=== PATIENT | female | born 1980 | race Caucasian/White ===

== ENCOUNTER 2017-08-27 09:24 | Emergency (ER) | payer BC ==
[2017-08-27] MEDS ORDERED: Cyclobenzaprine TAB* 10 MG PO ONE (10:25)
[2017-08-27] MEDS ORDERED: Ketorolac INJ* 60 MG/2 ML VIAL IM ONE (10:25)
--- NOTE | 2017-08-27 10:39 | ED ---
Back Pain - HPI Summary HPI Summary: Patient is an otherwise healthy 37-year-old female presenting to the ED with right-sided flank pain after falling on a tailgate 2 days ago. She states she handles pain very well yet she is unable to withstand this type of pain. She is concerned for a kidney injury. Denies any hematuria or UTI symptoms. Denies any abdominal pain. She denies any cough, chest pain, shortness of breath. Denies any fevers, sweats, chills. She has been otherwise healthy and states she is otherwise at her baseline other than her 9 out of 10 right flank pain. Denies any pain directly over the spine is has never had spinal or other back issues in the past. She has been using ice for relief. She has been using Tylenol without relief. - History of Current Complaint Chief Complaint: EDBackInjuryPain Stated Complaint: FALL/RT FLANK PAIN Time Seen by Provider: 08/27/17 09:52 Hx Obtained From: Patient Hx Last Menstrual Period: last week Onset/Duration: Sudden Onset Onset/Duration: Started Hours Ago Timing: Constant Back Pain Location: Is Discrete @ - Right flank Severity Initially: Severe Severity Currently: Moderate Pain Intensity: 9 Pain Scale Used: 0-10 Numeric Character: Aching Aggravating Symptom(s): Movement, Lifting, Bending, Walking Alleviating Symptom(s): Rest, Position Associated Signs And Symptoms: Positive: Bruising - Risk Factors AAA Risk Factors: Negative TAD Risk Factors: Negative Cauda Equina Risk Factors: Negative Epidural Abscess Risk Factors: Negative - Allergies/Home Medications Allergies/Adverse Reactions: Allergies Allergy/AdvReac Type Severity Reaction Status Date / Time Penicillins Allergy Unknown Verified 08/27/17 10:07 Reaction Details PMH/Surg Hx/FS Hx/Imm Hx Previously Healthy: Yes - Surgical History Surgery Procedure, Year, and Place: - Immunization History Hx Pertussis Vaccination: No Immunizations Up to Date: Unable to Obtain/Confirm Infectious Disease History: No Infectious Disease History: Denies: Traveled Outside the [place] in Last 30 Days - Family History Known Family History: Positive: Diabetes, Other - cancer - Social History Occupation: Employed Full-time Lives: With Family Alcohol Use: Weekly Hx Substance Use: No Substance Use Type: Reports: None Hx Tobacco Use: Yes Smoking Status (MU): Light Every Day Tobacco Smoker Type: Cigarettes Amount Used/How Often: 8-10 cig a day Review of Systems Constitutional: Negative Negative: Fever, Chills, Fatigue, Skin Diaphoresis Eyes: Negative Cardiovascular: Negative Respiratory: Negative Negative: Shortness Of Breath, Cough Positive: Other - back pain. Negative: Abdominal Pain, Vomiting, Diarrhea, Nausea Genitourinary: Negative Positive: no symptoms reported, see HPI Positive: Arthralgia - right-sided flank pain, Myalgia Skin: Negative Neurological: Negative All Other Systems Reviewed And Are Negative: Yes Physical Exam Triage Information Reviewed: Yes Vital Signs On Initial Exam: Initial Vitals Temp Pulse Resp BP Pulse Ox 97.9 F 77 15 152/105 98 08/27/17 09:41 08/27/17 09:41 08/27/17 09:41 08/27/17 09:41 08/27/17 09:41 Vital Signs Reviewed: Yes Appearance: Positive: Well-Appearing, Well-Nourished Skin: Positive: Warm, Skin Color Reflects Adequate Perfusion, Other - Ecchymosis to the right flank Head/Face: Positive: Normal Head/Face Inspection Eyes: Positive: EOMI, CLIFF Neck: Positive: Supple, No Lymphadenopathy Respiratory/Lung Sounds: Positive: Clear to Auscultation, Breath Sounds Present Cardiovascular: Positive: RRR, Pulses are Symmetrical in both Upper and Lower Extremities Abdomen Description: Positive: Nontender, Soft, CVA Tenderness (R). Negative: CVA Tenderness (L), McBurney's Point Tenderness Neurological: Positive: Normal, Sensory/Motor Intact, Alert, Oriented to Person Place, Time, Speech Normal Psychiatric: Positive: Normal, Affect/Mood Appropriate AVPU Assessment: Alert Diagnostics - Vital Signs Vital Signs Temp Pulse Resp BP Pulse Ox 08/27/17 09:41 97.9 F 77 15 152/105 98 - Laboratory Lab Statement: Any lab studies that have been ordered have been reviewed, and results considered in the medical decision making process. Back Pain Course/Dx - Course Course Of Treatment: During the course of treatment, the patient is evaluated for right flank pain. She is exquisitely tender over the right flank on deep palpation, there is ecchymosis to the side. She has no pain to the lumbar spine and is ambulatory without worsening discomfort. Denies any weakness, numbness, tingling. She denies any fevers. Denies any chest pain or shortness of breath. CT abdomen and pelvis obtained to assess for further injury of the kidney per patient request. She is given Toradol and Flexeril for relief. UA obtained. She is given Toradol, Flexeril in the ED with good effect. Toradol and Flexeril prescribed for at home. CTA obtained which shows: IMPRESSION: NO HYDRONEPHROSIS OR NEPHROLITHIASIS. NO ACUTE NONCONTRAST CT PATHOLOGY OF THE VISUALIZED. ABDOMEN OR PELVIS. She is sent home with strict return precautions if she is urinating blood or having any worsening abdominal pain. She understands these precautions and is okay for discharge at this time. - Diagnoses Differential Diagnosis/HQI/PQRI: Positive: Strain, Sprain Provider Diagnoses: Contusion Images - Images Full Body (No Head): 1 - Ecchymosis Discharge - Sign-Out/Discharge Documenting (check all that apply): Discharge/Admit/Transfer - Discharge Plan Condition: Stable Disposition: HOME Prescriptions: Cyclobenzaprine TAB* [Flexeril TAB*] 10 mg PO BID PRN #10 tab PRN Reason: Spasms Ketorolac TAB * [Toradol TAB *] 10 mg PO Q6H #16 tab Patient Education Materials: Contusion in Adults (ED) Referrals: Zechariah Lopez II, MD [Primary Care Provider] - Additional Instructions: Toradol up to 4 times daily for pain Flexeril as needed for any muscle aches or spasms Flexeril may be taken up to twice daily morning and night Use heat pads to the area as much as possible Do not take Advil, ibuprofen, naproxen or other NSAIDs while taking Toradol If he develop any worsening or changing symptoms, return to the ED immediately - Billing Disposition and Condition Condition: STABLE Disposition: HOME
--- NOTE | 2017-08-27 10:46 | RAD ---
CLINICAL HISTORY: Right-sided kidney pain after fall COMPARISON: None TECHNIQUE: Multiple contiguous axial CT scans were obtained of the abdomen and pelvis, without intravenous contrast enhancement. Coronal and sagittal multiplanar reformations are submitted for review. Oral contrast was not administered. FINDINGS: The study is limited by the lack of intravenous contrast. This limits evaluation of the solid organs and vasculature. LUNG BASES: The lung bases are clear. LIVER: The liver is normal in shape, size, contour, and attenuation. BILE DUCTS: There is no intrahepatic or extrahepatic biliary dilatation. GALLBLADDER: The gallbladder is normal, without pericholecystic inflammatory change. PANCREAS: The pancreas is normal, without mass or ductal dilatation. SPLEEN: Normal in size and appearance. UPPER GI TRACT: Evaluation of the gastrointestinal tract is limited by incomplete gastric distention. The upper GI tract is unremarkable. SMALL BOWEL AND MESENTERY: The small bowel is normal in contour, course, and caliber. There is no obstruction or dilatation. COLON: The colon is normal in contour, course, caliber. There is no pericolonic inflammatory change. There is a tubular, vermiform, hollow viscus that is blind ending, and originates from the cecum, consistent with a normal appendix. There is no periappendiceal inflammatory change. This is best seen on images 34 through 37. ADRENALS: Normal bilaterally. KIDNEYS: The kidneys are normal in shape, size, contour, and axis. There is no hydronephrosis or nephrolithiasis. There are no perinephric fluid collections. BLADDER: The bladder is smooth in contour. PELVIC ORGANS: The uterus and adnexa are grossly normal for technique. AORTA: The aorta is normal. IVC: Unremarkable LYMPH NODES: There is no lymphadenopathy by size criteria. ABDOMINAL WALL: There is a small fat-containing umbilical hernia. BONES AND SOFT TISSUES: Degenerative changes are noted at L4-L5 and L5-S1 OTHER: None IMPRESSION: NO HYDRONEPHROSIS OR NEPHROLITHIASIS. NO ACUTE NONCONTRAST CT PATHOLOGY OF THE VISUALIZED ABDOMEN OR PELVIS.
[2017-08-27 11:14] VITALS: BP 148/98
== END 2017-08-27 11:14 | disposition home or self-care (01) ==
LOC: ED 09:24
DX: S30.1XXA Contusion of abdominal wall, initial encounter (principal); W19.XXXA Unspecified fall, initial encounter; Y92.9 Unspecified place or not applicable; R10.84 Generalized abdominal pain; F17.210 Nicotine dependence, cigarettes, uncomplicated
CPT/HCPCS: 74176; 96372; 99282; A9270-GY; J1885

== ENCOUNTER 2023-12-23 10:09 | Inpatient (IN) ==
[2023-12-23] MEDS ORDERED: Naloxone 4 mg VIAL 0.4 MG/ML 10 ml VIAL (4 mg) ONE (10:15)
[2023-12-23] MEDS: Naloxone 4 mg VIAL 0.4 MG/ML 10 ml VIAL (4 mg) IV ONE (10:19)
[2023-12-23 10:40] LABS: ABS Basophils 0.1 10^3/uL (0.0-0.1); ABS Eosinophils 0.5 10^3/uL (0.0-0.5); ABS Lymphocytes 1.8 10^3/uL (1.0-4.8); ABS Monocytes 0.3 10^3/uL (0.0-0.9); ABS Neutrophils 2.6 10^3/uL (1.5-7.6); ABS Nucleated RBC 0.01 10^3/ul; Eosinophil % 9.9 %; Hematocrit 40.7 % (35-45); Hemoglobin 13.6 g/dL (11.5-14.3); Lymphocyte % 33.4 %; Mean Corpuscular Hemoglobin 29.4 pg (27-33); Mean Corpuscular Hgb Conc 33.5 g/dL (31-36); Mean Corpuscular Volume 87.9 fL (80-97); Mean Platelet Volume 7.7 fL (7.5-11.2); Nucleated Red Blood Cells % 0.1 %/100WBC (0.0-0.8); Platelet Count 275 10^3/uL (150-450); Red Blood Count 4.63 10^6/uL (3.63-4.92); Red Cell Distribution Width 15.9 % (12-17); White Blood Count 5.3 10^3/uL (3.8-11.8)
[2023-12-23 10:58] LABS: ALT 19 U/L (7-52); AST 23 U/L (13-39); Acetaminophen < 15 mcg/mL; Albumin 4.6 g/dL (3.2-5.2); Albumin/Globulin Ratio 1.7 (1-3); Alcohol, S 144 mg/dL (<13); Alkaline Phosphatase 72 U/L (35-149); Anion Gap 13 mmol/L (2-16); Blood Urea Nitrogen 6 mg/dL (6-24); CO2 Carbon Dioxide 25 mmol/L (22-32); Calcium 8.6 mg/dL (8.6-10.3); Chloride 104 mmol/L (101-111); Creatinine, Serum 0.66 mg/dL (0.51-0.95); Globulin 2.7 g/dL (2-4); Glucose 88 mg/dL (70-100); Potassium 3.9 mmol/L (3.5-5.0); Salicylate < 2.50 mg/dL (<30); Sodium 142 mmol/L (135-145); Total Bilirubin 0.4 mg/dL (0.2-1.0); Total Protein 7.3 g/dL (6.4-8.9); eGFR CKD-EPI 110.9 (>60)
[2023-12-23 11:05] LABS: HCG Pregnancy < 0.60 mIU/mL
[2023-12-23 13:36] LABS: Venous Bicarbonate HCO3 25.2 mmol/L (24-28)
[2023-12-23] MEDS: Naloxone 0.4 mg VIAL 0.4 mg/ml 1 ml VIAL IV PUSH ONE ×2 (13:57)
[2023-12-23 14:25] LABS: Urine Benzodiazepine Screen None Detected (None Detect); Urine Cannabinoids Screen Presumptive Positive (None Detect); Urine Opiates Screen None Detected (None Detect)
[2023-12-23] MEDS ORDERED: Al Hydrox/Mg Hydrox/Simet LIQ 30 ML UDC PO PRN (22:35)
[2023-12-24 08:17] LABS: HDL Cholesterol 80.9 mg/dL
[2023-12-24] MEDS: Vitamin THERAPEUTIC TAB PO SCH (11:44)
[2023-12-24] MEDS: Nicotine PATCH 14 MG/24 HR PATCH TRANSDERM SCH (11:44)
[2023-12-25] MEDS: Nicotine GUM 2MG FRUIT FLAVOR PO PRN (13:26)
[2023-12-27 10:34] VITALS: BP 135/93
== END 2023-12-27 12:05 | disposition home or self-care (01) | DRG 751 ==
LOC: ED 10:09 → BSU 17:13
PROVIDERS: ADMIT Psychiatry & Neurology Psychiatry; ATTEND Psychiatry & Neurology Psychiatry

== ENCOUNTER 2024-04-10 01:02 | Inpatient (IN) ==
[2024-04-10 01:58] LABS: ABS Basophils 0.1 10^3/uL (0.0-0.1); ABS Eosinophils 0.3 10^3/uL (0.0-0.5); ABS Lymphocytes 2.2 10^3/uL (1.0-4.8); ABS Monocytes 0.5 10^3/uL (0.0-0.9); ABS Neutrophils 5.8 10^3/uL (1.5-7.6); ABS Nucleated RBC 0.01 10^3/ul; Hematocrit 30.7 % (35-45); Hemoglobin 10.1 g/dL (11.5-14.3); Lymphocyte % 24.3 %; Mean Corpuscular Hemoglobin 26.3 pg (27-33); Mean Corpuscular Hgb Conc 32.9 g/dL (31-36); Mean Corpuscular Volume 79.9 fL (80-97); Mean Platelet Volume 7.5 fL (7.5-11.2); Nucleated Red Blood Cells % 0.1 %/100WBC (0.0-0.8); Platelet Count 330 10^3/uL (150-450); Red Blood Count 3.84 10^6/uL (3.63-4.92); Red Cell Distribution Width 16.2 % (12-17); White Blood Count 8.9 10^3/uL (3.8-11.8)
[2024-04-10 02:18] LABS: Urine Appearance Clear; Urine Bilirubin Negative (Negative); Urine Blood 3+ (Negative); Urine Color Light-Yellow; Urine Glucose Negative (Negative); Urine Ketones Negative (Negative); Urine Nitrite Negative (Negative); Urine Protein Negative (Negative); Urine Urobilinogen Negative (Negative); Urine pH 6.5 (5.0-8.0)
[2024-04-10 02:32] LABS: ALT 16 U/L (7-52); AST 20 U/L (13-39); Acetaminophen < 15 mcg/mL; Alcohol, S < 13 mg/dL (<13); Alkaline Phosphatase 61 U/L (35-149); Anion Gap 7 mmol/L (2-16); Blood Urea Nitrogen 13 mg/dL (6-24); CO2 Carbon Dioxide 24 mmol/L (22-32); Calcium 8.7 mg/dL (8.6-10.3); Chloride 103 mmol/L (101-111); Creatinine, Serum 0.71 mg/dL (0.51-0.95); Glucose 111 mg/dL (70-100); Salicylate < 2.50 mg/dL (<30); Sodium 134 mmol/L (135-145); Total Bilirubin 0.5 mg/dL (0.2-1.0); eGFR CKD-EPI 106.8 (>60)
[2024-04-10 02:38] LABS: HCG Pregnancy < 0.60 mIU/mL
[2024-04-10 03:08] LABS: Urine Benzodiazepine Screen None Detected (None Detect); Urine Cannabinoids Screen Presumptive Positive (None Detect); Urine Opiates Screen None Detected (None Detect)
[2024-04-10 05:50] LABS: Urine Bacteria Absent /HPF (Absent); Urine Red Blood Cell 3+(>10/hpf) /HPF (0-Trace); Urine Squamous Epithelial Cell Present /HPF (Absent); Urine White Blood Cell Trace(0-5/hpf) /HPF (0-Trace)
[2024-04-10 05:54] LABS: Urine Benzodiazepine Screen None Detected (None Detect); Urine Buprenorphine Screen None Detected (None Detect); Urine Cannabinoids Screen Presumptive Positive (None Detect); Urine Fentanyl Screen None Detected (None Detect); Urine Hydrocodone Screen None Detected (None Detect); Urine Opiates Screen None Detected (None Detect)
[2024-04-10] MEDS: Naloxone 0.4 mg VIAL 0.4 mg/ml 1 ml VIAL IV PUSH ONE ×2 (07:39→13:55)
[2024-04-10] MEDS: Lactated Ringers 1000 ml BAG 500 ML IV ONE (14:04)
[2024-04-10] MEDS: Enoxaparin 40 MG/0.4 ML SYR SUBCUT SCH (14:14)
[2024-04-10 14:50] LABS: Lipase 10 U/L (11.0-82.0)
[2024-04-10] MEDS: Haloperidol 5 mg/ml SDV IV/IM 5 MG/ML AMP IV SLOW PU PRN (22:27)
[2024-04-11 05:05] LABS: ABS Basophils 0.1 10^3/uL (0.0-0.1); ABS Eosinophils 0.2 10^3/uL (0.0-0.5); ABS Lymphocytes 1.4 10^3/uL (1.0-4.8); ABS Monocytes 0.7 10^3/uL (0.0-0.9); ABS Neutrophils 7.3 10^3/uL (1.5-7.6); Eosinophil % 2.2 %; Hematocrit 30.3 % (35-45); Hemoglobin 10.1 g/dL (11.5-14.3); Lymphocyte % 14.5 %; Mean Corpuscular Hemoglobin 26.5 pg (27-33); Mean Corpuscular Hgb Conc 33.3 g/dL (31-36); Mean Corpuscular Volume 79.5 fL (80-97); Mean Platelet Volume 8.1 fL (7.5-11.2); Platelet Count 301 10^3/uL (150-450); Red Blood Count 3.81 10^6/uL (3.63-4.92); Red Cell Distribution Width 16.8 % (12-17); White Blood Count 9.7 10^3/uL (3.8-11.8)
[2024-04-11 05:36] LABS: Calcium 8.8 mg/dL (8.6-10.3); Creatinine, Serum 0.71 mg/dL (0.51-0.95); Magnesium 1.8 mg/dL (1.9-2.7); Potassium 3.9 mmol/L (3.5-5.0); eGFR CKD-EPI 106.8 (>60)
[2024-04-11] MEDS: Magnesium Sulfate 2 gm BAG 2 GM/50 ML BAG IVPB ONE (10:21)
[2024-04-11] MEDS: Thiamine 100 MG/ML 2 ml VIAL 500 MG in NS 0.9% 250 ml 250 ML IV ONE (12:21)
[2024-04-11] MEDS: LORazepam 2 mg VIAL 1 ml ONE (15:32)
[2024-04-11] MEDS: diazePAM INJ CARPUJECT 5 MG/ML SYRINGE IV ONE (16:34)
[2024-04-11] MEDS ORDERED: Thiamine 100 MG/ML 2 ml VIAL 100 MG in NS 0.9% 50 ML 50 ML IV SCH (18:00)
[2024-04-11] MEDS: Thiamine IV 100 MG in NS 0.9% 50 ML Q24H IV SCH (21:02)
[2024-04-12] MEDS ORDERED: Lorazepam PYXIS KEY PRN (04:05)
[2024-04-12] MEDS: LORazepam 2 mg VIAL 1 ml IV PUSH SCH (04:28)
[2024-04-12 05:09] LABS: ABS Eosinophils 0.3 10^3/uL (0.0-0.5); ABS Monocytes 0.6 10^3/uL (0.0-0.9); ABS Neutrophils 4.3 10^3/uL (1.5-7.6); ABS Nucleated RBC 0.01 10^3/ul; Eosinophil % 4.1 %; Lymphocyte % 15.4 %; Mean Corpuscular Hemoglobin 26.4 pg (27-33); Mean Corpuscular Hgb Conc 33.1 g/dL (31-36); Mean Corpuscular Volume 79.8 fL (80-97); Mean Platelet Volume 7.9 fL (7.5-11.2); Nucleated Red Blood Cells % 0.1 %/100WBC (0.0-0.8); Platelet Count 268 10^3/uL (150-450); Red Blood Count 3.76 10^6/uL (3.63-4.92); Red Cell Distribution Width 16.5 % (12-17); White Blood Count 6.2 10^3/uL (3.8-11.8)
[2024-04-12 05:38] LABS: Potassium 3.9 mmol/L (3.5-5.0)
[2024-04-12 05:39] LABS: Calcium 8.8 mg/dL (8.6-10.3); Creatinine, Serum 0.69 mg/dL (0.51-0.95)
[2024-04-12] MEDS: Haloperidol 5 mg/ml SDV IV/IM 5 MG/ML AMP IV SLOW PU ONE (07:48)
[2024-04-12] MEDS: Thiamine 100 MG/ML 2 ml VIAL (200 mg) IM ONE (07:53)
[2024-04-12] MEDS: Multivitamins/Minerals TAB PO SCH (10:44)
[2024-04-12] MEDS: Benzocaine/Menthol LOZ MT ONE (20:48)
[2024-04-13 06:00] LABS: ABS Eosinophils 0.3 10^3/uL (0.0-0.5); ABS Lymphocytes 0.9 10^3/uL (1.0-4.8); ABS Monocytes 0.6 10^3/uL (0.0-0.9); ABS Nucleated RBC 0.01 10^3/ul; Eosinophil % 6.7 %; Hematocrit 31.1 % (35-45); Hemoglobin 10.3 g/dL (11.5-14.3); Lymphocyte % 18.2 %; Mean Corpuscular Hemoglobin 26.5 pg (27-33); Mean Corpuscular Hgb Conc 33.2 g/dL (31-36); Mean Corpuscular Volume 79.8 fL (80-97); Mean Platelet Volume 7.9 fL (7.5-11.2); Nucleated Red Blood Cells % 0.2 %/100WBC (0.0-0.8); Platelet Count 283 10^3/uL (150-450); Red Cell Distribution Width 16.8 % (12-17); White Blood Count 4.8 10^3/uL (3.8-11.8)
[2024-04-13 06:33] LABS: Creatinine, Serum 0.73 mg/dL (0.51-0.95); Magnesium 1.9 mg/dL (1.9-2.7); Potassium 4.3 mmol/L (3.5-5.0); eGFR CKD-EPI 103.3 (>60)
[2024-04-14 08:36] VITALS: BP 125/98
[2024-04-14] MEDS: Nicotine PATCH 21 MG/24 HR PATCH TRANSDERM SCH (11:17)
[2024-04-14] MEDS: Nicotine GUM 2MG FRUIT FLAVOR PO PRN (14:34)
== END 2024-04-14 15:24 | DRG 812 ==
LOC: ED 01:02 → SUATTDRO 11:11 → EDHOLD 11:11 → ICU 11:36 → MEDTELE 04-12 00:21
PROVIDERS: ADMIT Student in an Organized Health Care Education/Training Program; ATTEND Hospitalist

== ENCOUNTER 2024-04-14 12:25 | Inpatient (IN) ==
[2024-04-14] MEDS ORDERED: Al Hydrox/Mg Hydrox/Simet LIQ 30 ML UDC PO PRN (16:27)
[2024-04-15] MEDS: Nicotine PATCH 14 MG/24 HR PATCH TRANSDERM SCH (08:35)
[2024-04-15 08:36] LABS: HDL Cholesterol 71.9 mg/dL
[2024-04-16] MEDS: Nicotine GUM 2MG FRUIT FLAVOR PO PRN (20:26)
[2024-04-18 08:33] VITALS: BP 146/100
== END 2024-04-18 14:35 | disposition home or self-care (01) | DRG 751 ==
LOC: BSU 16:37
PROVIDERS: ADMIT Psychiatry & Neurology Psychiatry; ATTEND Psychiatry & Neurology Psychiatry